=== PATIENT | male | born 1950 | race Caucasian/White ===

== ENCOUNTER → 2018-03-02 17:31 | Outpatient (CLI) | payer MEDICARE ==
[~2018-03-02 17:31] MED LIST: ALBUTEROL SULF8.5 GM INH; BAYER CHEWABLE81 MG PO; CYCLOBENZAPRINE10 MG PO; ERYTHROMYCIN OPT1 GM EACH EYE; LOSARTAN/HCT TAB 100; MELOXICAM TAB 15M
[2018-03-04 09:13] LABS: IMMUNOGLOBULIN A 343 mg/dL (61-437)
[2018-03-06 17:10] LABS: IGG SUBCLASS 1 412 mg/dL (248-810); IGG SUBCLASS 2 305 mg/dL (130-555); IGG SUBCLASS 3 62 mg/dL (15-102); IGG SUBCLASS 4 26 mg/dL (2-96); IMMUNOGLOBULIN G 736 mg/dL (700-1600)
[2018-03-07 09:16] LABS: IMMUNOGLOBULIN E 56 IU/mL (0-100)
== END | disposition home or self-care (01) ==
LOC: D.LABREF 17:31
PROVIDERS: Internal Medicine Pulmonary Disease
DX: J47.9 Bronchiectasis, uncomplicated (principal); R06.02 Shortness of breath

== ENCOUNTER → 2018-03-09 07:34 | Day surgery (SDC) | payer MEDICARE, OTHER ==
--- NOTE | ~2018-03-09 | OP ---
PATIENT NAME: ANDRES PURCELL MEDICAL RECORD: [id number] :46 LOCATION:[facility] ADMISSION DATE: SURGEON: CRISTIN CONNELL MD DATE OF OPERATION: 03/09/2018 PROCEDURE: Fiberoptic bronchoscopy. INDICATION: Mr. Purcell is a 67-year-old gentleman who recently had a CT scan of the chest, which showed atelectasis of right lower lobe and bronchiectasis. Fiberoptic bronchoscopy was carried out to inspect the airway for any obstructive lesion as well as any foreign body. MONITORING: EKG, pulse, blood pressure, CO2 was monitored throughout the procedure. MEDICATIONS: Versed 4 mg IV in divided doses, atropine 0.6 mg IM, morphine 4 mg IM, Phenergan 12.5 mg IM, fentanyl 100 mcg IV in divided doses. PROCEDURE IN DETAIL: The fiberoptic bronchoscope was easily passed through the mouth. 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 The main trachea was normal. The shreya was sharp. The right main bronchus was normal. The subsegment to the right upper lobe within normal range. No endobronchial lesion was seen. The right middle lobe subsegment within normal range. The right lower lobe subsegment within normal range. No endobronchial lesion was seen. No foreign body was seen. The left main bronchus was normal. The subsegment to the left upper lobe lingula, left lower lobe within normal range. No endobronchial lesion was seen. Washing was obtained and sent for routine culture and sensitivity, AFB, and fungus. Overall, the patient tolerated the procedure very well. TRANSINT:[id number] Voice Confirmation ID: [id number] DOCUMENT ID: [id number] CRISTIN CONNELL MD CC: [id number] DICTATION DATE: 03/09/18 1057 SOAKERS SUPERVISOR: 03/09/18 1151 [facility] [address] [place] [address]
[2018-03-09 08:16] LABS: BASOPHILS 0.2 % (0-2); EOSINOPHILS 1.4 % (0-7); HEMATOCRIT 43.9 % (42.0-54.0); HEMOGLOBIN 15.9 g/dL (13.5-17.5); IMMATURE GRANULOCYTES 0.2 % (0-5); LYMPHOCYTES 23.4 % (15-50); MCH 34.6 pg (26.0-34.0); MCHC 36.2 g/dL (31.0-37.0); MCV 95.4 fL (80.0-100.0); MEAN PLATELET VOLUME 9.5 fL (7.4-10.4); MONOCYTES 6.9 % (2-11); NEUTROPHILS 67.9 % (40-80); PLATELET COUNT 196 10x3/uL (130-400); RDW 13.2 % (11.5-14.5); WBC 4.9 10x3/uL (4.8-10.8)
[2018-03-09 08:32] LABS: INR 0.99 (0.85-1.17); PROTIME 12.6 SECONDS (11.6-15.0)
--- NOTE | 2018-03-09 14:18 | NUR ---
PATIENT RECIEVED FROM ENDO POST BRONCOSCOPY. PATIENT HAD NO SOB OR COUGH POST PROECEDURE AND TOLORATED FULL LIQUIDS. PATIENT EDUCATION PROVIDED AND UNDERSTANDING VERBALIZED.
[2018-03-10 13:16] LABS: FUNGUS STAIN Final report (())
[2018-03-10 17:11] LABS: ACID FAST SMEAR Negative (()); AFB SPECIMEN PROCESSING Concentration (())
[2018-03-17 15:17] LABS: FUNGUS MYCOLOGY CULTURE Preliminary report (())
== END | disposition home or self-care (01) ==
LOC: D.OPS 07:34
PROVIDERS: Internal Medicine Pulmonary Disease
DX: J47.9 Bronchiectasis, uncomplicated (principal); J98.11 Atelectasis

== ENCOUNTER → 2018-04-18 09:33 | Outpatient (CLI) | payer MEDICARE, OTHER ==
[2018-04-18 13:10] LABS: ALBUMIN 3.9 g/dL (3.4-5.0); BILIRUBIN - DIRECT 0.15 mg/dL (0.00-0.30); BILIRUBIN - INDIRECT 0.4 mg/dL (0.00-1.00); BILIRUBIN - TOTAL 0.55 mg/dL (0.2-1.3); PROTEIN - SERUM 6.9 g/dL (6.4-8.2)
[2018-04-19 08:20] LABS: IMMUNOGLOBULIN A 325 mg/dL (61-437); IMMUNOGLOBULIN M 78 mg/dL (20-172)
[2018-04-19 15:20] LABS: ANA REFLEX - DIRECT Negative (Negative)
[2018-04-20 06:16] LABS: IGG SUBCLASS 1 397 mg/dL (248-810); IGG SUBCLASS 2 291 mg/dL (130-555); IGG SUBCLASS 3 65 mg/dL (15-102); IGG SUBCLASS 4 30 mg/dL (2-96); IMMUNOGLOBULIN G 758 mg/dL (700-1600)
--- NOTE | 2018-04-20 11:54 | EC ---
PATIENT:ANDRES PURCELL DATE OF SERVICE: 04/18/18 SEX: M MEDICAL RECORD: [id number] DATE OF : 46 LOCATION:[facility] AGE OF PATIENT: 67 ADMISSION DATE: 04/18/18 REFERRING PHYSICIAN: INTERPRETING PHYSICIAN: ИВАН HAMLIN MD ECHOCARDIOGRAM REPORT ECHO CHARGES 4 ECHO COMPLETE Date: 04/18/18 CLINICAL DIAGNOSIS: DYSPENA ECHOCARDIOGRAPHIC MEASUREMENTS (adult normal given) AC root (d.<3.7cm) 3.1 cm LV Septum d (<1.2 cm> 1.3 cm Valve Excursion 1.9 cm LV Septum (systole) 1.8 cm Left Atria (s.<4.0cm> 3.9 cm LVPW d(<1.2cm) 1.1 cm RV (d.<2.3cm) 3.1 cm LVPW (sytole) 1.8 cm LV diastole(<5.6CM) 4.4 cm MV E-F(>70mm/sec) cm LV systole 2.2 cm LVOT Diameter 1.7 cm MV exc.(>10mm) cm Est.ejection fraction (50-75%) % DOPPLER: LVIT cm/sec A 67 cm/sec E 100 cm/sec LA cm/sec RVSP 27.8 mmHg LVOT 108 cm/sec AOP1/2T m/s Asc. Ao 115 cm/sec RVOT 70 cm/sec RA cm/sec PA 86 cm/sec AV Gradient Peak 5.3 mmHg AV Mean 2.5 mmHg AV Area 1.4 cm MV Gradient Peak 3.8 mmHg MV Mean 1.4 mmHg MV Area cm COMMENTS: Associate Professor Of Education: Princess GANDHIYOANA CLARKE Sprinkler Driver: Soham Hamlin TAPE# PACS Pericardial Effusion N DATE OF SERVICE: 04/18/2018 FINDINGS: 1. Left ventricular chamber size is within normal limits. Left ventricular systolic function is normal. Overall ejection fraction estimated at 65%. 2. Left atrium is within normal limits. Right atrium and right ventricular chamber sizes are mildly dilated. 3. Valvular structure have normal structure and motion. 4. Doppler interrogation reveals mild aortic insufficiency, mild mitral regurgitation, mild tricuspid regurgitation, no other valvular insufficiency or ECHOCARDIOGRAM REPORT [id number] ANDRES PURCELL stenosis. Pulmonary systolic pressure is normal, estimated at 28 mmHg. 5. No evidence of pericardial effusion or left ventricular thrombus. TRANSINT:[id number] Voice Confirmation ID: [id number] DOCUMENT ID: [id number] ИВАН HAMLIN MD at 1154 CC: [id number] DICTATION DATE: 04/19/18 1129 FIELD MARKETING MANAGER: 04/19/18 1141 DEP CLI 04/18/18 [id number] [place] [address]
[2018-04-22 07:26] LABS: IMMUNOGLOBULIN E 49 IU/mL (6-495)
== END | disposition home or self-care (01) ==
LOC: D.ECHO 09:33 → D.RT 13:00
PROVIDERS: ATTEND Internal Medicine Pulmonary Disease
DX: J47.9 Bronchiectasis, uncomplicated (principal); R06.00 Dyspnea, unspecified

== ENCOUNTER 2018-05-10 08:20 | Outpatient (CLI) | payer MEDICARE, OTHER ==
[~2018-05-10] VITALS: Ht 177.8 cm; Wt 93.2 kg
--- NOTE | ~2018-05-10 | HEMODYNAMI ---
PATIENT:ANDRES PURCELL MEDICAL RECORD: [id number] : 46 LOCATION:[facility] ADMISSION DATE: 05/10/18 Generatedon:05/10/201810:05 Patient name: ANDRES PURCELL Patient #: [id number] SSN: : 1950 Date of study: 05/10/2018 Page: Of Hemodynamic Procedure Report Patient Data Patient Demographics Procedure consent was obtained First Name: ANDRES Gender: Male Last Name: JAZZY : 1950 Middle Initial: L Age: 67 year(s) Patient #: [id number] Race: Additional ID: [id number] Contact details [address]: [address] [place] [address] State: [facility] Zip code: [address] Admission Admission Data Admission Date: 05/10/2018 Admission Time: 8:20 Arrival Date: 05/10/2018 Arrival Time: 0:00 Admit Source: Other Insurance Payor: Medicare Height (in.): 70 BSA: 2.11 (m2) Height (cm.): 177.8 BMI: 29.41 (kg/m2) Weight (lbs.): 205 Weight (kg.): 92.99 Lab Results Lab Result Date: 05/10/2018 Lab Result Time: 0:00 Biochemistry Name Units Result Min Max BUN mg/dl 17 --(---*)-- 7 18 Creatinine mg/dl 0.8 --(-*--)-- 0.6 1.3 CBC Name Units Result Min Max Hemoglobin g/dl 15.9 --(--*-)-- 13.5 17.5 Procedure Procedure Types Cath Procedure Diagnostic Procedure [facility] w/Coronaries Procedure Description Procedure Date Procedure Date: 05/10/2018 Procedure Start Time: 9:57 Procedure End Time: 10:02 Procedure Staff Name Function Darin Hamlin MD Performing Physician Giulia Walton RT Monitor Zachery Monroy RN Nurse Denisse Romo RT Scrub Procedure Data Cath Procedure Fluoroscopy Diagnostic fluoroscopy Total fluoroscopy Time: 0.7 time: 0.7 min min Diagnostic fluoroscopy Total fluoroscopy dose: 354 dose: 354 mGy mGy Contrast Material Contrast Material Type Amount (ml) Isovue 300 56 Entry Location Entry Primary Successful Side Size Upsize Upsize Entry Closure Succes sful Closure Location (Fr) 1 (Fr) 2 (Fr) Remarks Device Remarks Femoral Right 5 Fr Exoseal artery Estimated blood loss: 5 ml Diagnostic catheters Device Type Used For End Catheter Placement MULTIPACK Pigtail 5 Fr LV Angiography catheter MULTIPACK JL 4.0 5Fr Left Coronary catheter Angiography MULTIPACK 3DRC 5Fr Right Coronary catheter Angiography Procedure Complications No complications Procedure Medications Medication Administration Route Dosage 0.9% NaCl I.V. 100 ml/hr Oxygen etCO2 Nasal cannula 2 l/min Heparin Flush Bag added to field 2 bags (1000units/500ml NS) Lidocaine 2% added to field 20 Versed I.V. 2 mg Fentanyl I.V. 100 mcg Hemodynamics Rest BSA: 2.11 (m2) HGB: 15.9 (g/dl) O2 Consumption: Estimated: 231.04 (ml/min) O2 Co nsumption indexed: Estimated:109.5 (ml/min/m) Heart Rate: 53 (bpm) Pressure Samples Time Site Value (mmHg) Purpose Heart Use Rate(bpm) 9:58 LV 129/-16,-33 Snapshot 65 Snapshots Pre Cath Intra NCS Post Cath Vital Signs Time Heart Resp SPO2 etCO2 NIBP (mmHg) Rhythm Pain Sedation Rate (ipm) (%) (mmHg) Status Level (bpm) 9:33:11 53 16 94 0 142/83(109) NSR 0 (11) 10(A) , No pain 9:37:26 54 19 95 31.1 121/82(111) NSR 0 (11) 10(A) , No pain 9:41:34 54 14 94 30.4 126/82(108) NSR 0 (11) 10(A) , No pain 9:45:44 53 12 95 33.4 125/81(105) NSR 0 (11) 10(A) , No pain 9:49:52 62 12 94 31.1 120/85(102) NSR 0 (11) 10(A) , No pain 9:54:02 56 13 96 33.4 131/74(102) NSR 0 (11) 10(A) , No pain 9:58:14 66 12 94 31.1 119/80(99) NSR 0 (11) 9(A) , No pain 10:02:20 69 15 94 2.2 124/83(99) NSR 0 (11) 9(A) , No pain Medications Time Medication Route Dose Verified Delivered Reason Notes Effe ctiveness by by 9:35:51 0.9% NaCl I.V. 100 Zachery Zachery Per ml/hr Eliana Monroy physician RN RN 9:36:03 Oxygen etCO2 2 Zachery Zachery for low 02 Nasal l/min Lorigan Lorigan sats cannula RN RN 9:36:13 Heparin Flush added 2 Zachery Zachery used for Bag to bags Lorigan Lorigan procedure (1000units/500ml field RN RN NS) 9:36:22 Lidocaine 2% added 20ml Zachery Zachery for local to vial Lorigan Lorigan anesthetic field RN RN 9:53:47 Versed I.V. 2 mg Zachery Zachery for Lorigan Lorigan sedation RN RN 9:53:56 Fentanyl I.V. 100 Zachery Zachery for mcg Lorigan Lorigan sedation RN billet cutter Log Time Note 9:15:49 Zachery Monroy RN sent for patient. Start room use. 9:24:56 Time tracking: Regular hours (M-F 7:00 - 5:00) 9:25:00 Plan of Care:Hemodynamics will remain stable., Cardiac rhythm will remain stable., Comfort level will be maintained., Respiratory function will remain adequate., Patient/ family verbilizes understanding of procedure., Procedure tolerated without complication., Recovers from procedure without complications.. 9:25:05 Patient received from Pre/Post Procedure Room to CCL 2 Alert and oriented. Tansferred to table in Supine position. 9:25:06 Warm blankets applied, and bee hugger turned on for patient comfort. 9:25:06 Correct patient and procedure confirmed by team. 9:25:07 Signed procedure consent form obtained from patient. 9:25:08 ECG and BP/O2 sat monitors applied to patient. 9:25:09 Full Disclosure recording started 9:32:08 Vital chart was started 9:33:08 Baseline sample Acquired. 9:33:12 Rhythm: sinus rhythm 9:33:21 H&P Date Dictated: 05/10/2018 Within 30 days and on chart., H&P Addendum completed by physician on day of procedure. (MUST COMPLETE FOR ALL OUTPATIENTS). 9:33:22 Pre-procedure instructions explained to patient. 9:33:23 Pre-op teaching completed and patient verbalized understanding. 9:33:24 Family in waiting room. 9:33:26 Patient NPO since Midnight. 9:33:33 Is the patient allergic to Iodine/contrast media? Yes. 9:33:34 Was the patient premedicated? Yes 9:33:37 Is patient on blood thinner?No 9:33:38 Patient diabetic? No. 9:34:02 Previous problem with sedation/anesthesia? No ? 9:34:03 Snore? Yes 9:34:04 Sleep apnea? Yes 9:34:06 Deviated septum? No 9:34:07 Opens mouth fully? Yes 9:34:07 Sticks out tongue? Yes 9:34:17 Dentures? Yes in tight 9:34:23 Pre procedure: right dorsailis pedis pulse 1+ Palpable, but thready & weak; easily obliterated 9:34:25 Pre procedure: left dorsailis pedis pulse 1+ Palpable, but thready & weak; easily obliterated 9:34:27 Patient pain scale 0/10 ?. 9:34:33 IV patent on arrival in left forearm with 0.9% NaCl at [facility]. 9:34:35 Lab results completed and on chart. 9:34:38 Right groin area was prepped with chlora-prep and draped in sterile fashion 9:34:38 Alarms reviewed by R. N. 9:34:39 Sharps counted by scrub and verified by R.N. 9:35:51 0.9% NaCl 100 ml/hr I.V. was administered by Zachery Monroy RN; Per physician; 9:36:03 Oxygen 2 l/min etCO2 Nasal cannula was administered by Zachery Monroy RN; for low 02 sats; 9:36:13 Heparin Flush Bag (1000units/500ml NS) 2 bags added to field was administered by Zachery Monroy RN; used for procedure; 9:36:22 Lidocaine 2% 20ml vial added to field was administered by Zachery Monroy RN; for local anesthetic; 9:38:35 Lab Result : BUN 17 mg/dl 9:38:35 Lab Result : Hemoglobin 15.9 g/dl 9:38:35 Lab Result : Creatinine 0.8 mg/dl 9:39:56 Admit Source: Other 9:39:59 Arrival Date: 05/10/2018 12:00:00 AM 9:40:05 Insurance Payor : Medicare 9:40:12 Patient Height : 70 inches 9:40:17 Patient Weight : 205 lbs 9:43:43 Zero performed for pressure channel P1 9:52:32 Physician arrived 9:52:33 --------ALL STOP TIME OUT------ 9:52:33 Final Timeout: patient, procedure, and site verified with staff and physician. All members of the team are in agreement. 9:52:39 Right groin site verified by team. 9:52:43 Maximum allowable Isovue 300 dose 300ml. Physician notified. (300ml for normal creatinines. For patients with creatinine of 1.7 or higher multiply weight(kg) x 5 divided by creatinine.) 9:52:48 Fire Safety Assessment: A--An alcohol-based skin anteseptic being used preoperatively., C--Open oxygen or nitrous oxide is being used., D--An ESU, laser, or fiber-optic light is being used. 9:52:51 Physical assessment completed. ASA score P 2 - A patient with mild systemic disease as per Darin Hamlin MD. 9:52:55 Sedation plan: IV Moderate Sedation Medication:Versed, Fentanyl 9:53:47 Versed 2 mg I.V. was administered by Zachery Monroy RN; for sedation; 9:53:56 Fentanyl 100 mcg I.V. was administered by Zachery Monroy RN; for sedation; 9:55:20 Use device set Femoral Dx 9:55:21 ACIST Syringe (62961) opened to sterile field. 9:55:22 Bag Decanter (2002) opened to sterile field. 9:55:22 Medline Cath Pack ([id number]) opened to sterile field. 9:55:23 DIAGNOSTIC WIRE .035 260cm J wire (336503) opened to sterile field. 9:55:24 ACIST Hand Control (04633) opened to sterile field. 9:55:25 ACIST Manifold (49310) opened to sterile field. 9:55:25 DIAGNOSTIC Multipack 5Fr catheter set (LA4865) opened to sterile field. 9:55:27 Tegaderm 4 x 4 (1626W) opened to sterile field. 9:55:28 SHEATH 5FR [place] (VGA322) opened to sterile field. 9:57:25 Procedure started. 9:57:34 Local anesthetic to right femoral artery with Lidocaine 2% by Darin Hamlin MD.INITIAL ACCESS ONLY 9:57:44 A 5 Fr sheath was inserted into the Right Femoral artery 9:58:12 A MULTIPACK Pigtail 5 Fr catheter was advanced over the wire and used for LV Angiography. 9:58:30 LV hemodynamics recorded. 9:58:31 LV gram done using MARROQUIN 9:58:37 Injector settings: Ml/sec: 5, Volume: 15, 9:58:42 EF : 60 % 9:58:51 Catheter removed. 9:59:05 A MULTIPACK JL 4.0 5Fr catheter was advanced over the wire and used for Left Coronary Angiography. 9:59:25 LCA angiography performed. 9:59:29 Injector settings: Ml/sec: 3, Volume: 6, 10:00:11 Catheter removed. 10:00:17 A MULTIPACK 3DRC 5Fr catheter was advanced over the wire and used for Right Coronary Angiography. 10:00:49 RCA angiography performed. 10:00:53 Injector settings: Ml/sec: 3, Volume: 6, 10:00:59 EXOSEAL 5Fr (EX500) opened to sterile field. 10:01:06 Catheter removed. 10:01:13 Sheath removed intact; hemostasis achieved with Exoseal to the Right Femoral artery. 10:01:15 Procedure ended.(Physican Out) 10:01:51 Fluoroscopy time 00.70 minutes. 10:01:55 Fluoroscopy dose: 354 mGy 10:01:55 Flurop Dose total: 354 10:02:12 Contrast amount:Isovue 300 56ml. 10:02:14 Sharps counted by scrub and verified by R.N. 10:02:24 Insertion/operative site no bleeding no hematoma. 10:02:27 Post-op/insertion site Right Femoral artery dressed using a 4 x 4 and Tegaderm. 10:02:28 Post Procedure Pulses reassessed and unchanged 10:02:31 Post procedure rhythm: unchanged. 10:02:34 Estimated blood loss: 5 ml 10:02:35 Post procedure instruction explained to patient.Patient verbalizes understanding. 10:02:35 Patient needs reinforcement of post procedure teaching. 10:02:41 Procedure and supply charges have been captured, reviewed, submitted and are correct. 10:02:45 Procedure Complication : No complications 10:02:48 Vital chart was stopped 10:02:48 See physician's report for complete and final results. 10:02:51 Report given to Pre/Post Procedure Room. 10:02:54 Patient transfered to Pre/Post Procedure Room with Stretcher. 10:02:56 Procedure ended. 10:02:56 Full Disclosure recording stopped 10:03:00 End room use (Document Last) Device Usage Item Name Manufacture Quantity Catalog Hospital Part Current Minimal L ot# / Number Charge Number Stock Stock Serial# Code ACIST Acist 1 23246 700256 454875 963633 20 Syringe Medical (99967) Systems Inc Bag Microtek 1 2001S 155023 35089 950191 5 Decanter Medical Inc. () Medline Medline 1 [id number] 316123 12271 879367 5 Cath Pack ([id number]) DIAGNOSTIC St Tom 1 414435 138664 527200 817586 30 WIRE .035 260cm J wire (622035) ACIST Hand Acist 1 55466 235223 750115 121057 5 Control Medical (66266) Systems Inc ACIST Acist 1 92660 693729 540745 761205 5 Manifold Medical (02871) Systems Inc DIAGNOSTIC Cardinal 1 JT8431 235621 72844 183197 30 Multipack Health 5Fr catheter set (CB7013) Tegaderm 4 3M 1 1626W 990618 218581 329204 5 x 4 (1626W) SHEATH 5FR Terumo 1 IIP335 492075 457841 123687 5 [place] (SLQ421) MULTIPACK Cardinal 1 014195 5 Pigtail 5 Health Fr catheter MULTIPACK Cardinal 1 051780 5 JL 4.0 5Fr Health catheter MULTIPACK Cardinal 1 713859 5 3DRC 5Fr Health catheter EXOSEAL 5Fr Cardinal 1 EX500 497662 342571 389456 10 (EX500) Health Signature Audit Adel Stage Time Signature Unsigned Intra-Procedure 05/10/2018 Giulia Walton 10:05:13 AM RT(R) Signatures Monitor : Giulia Walton RT Signature : Date : Time : [facility] [address] [place] [address]
[2018-05-10] MEDS ORDERED: MOBIC7.5 MG PO (08:48)
[2018-05-10] MEDS ORDERED: COZAAR100 MG PO (08:48)
[2018-05-10] MEDS ORDERED: HYDROCHLOROTH12.5 M1 PO (08:48)
[2018-05-10] MEDS ORDERED: CLARITIN 10 MG10 MG PO (08:49)
[2018-05-10] MEDS ORDERED: CO Q-10200 MG PO (08:49)
[2018-05-10] MEDS ORDERED: LIPITOR20 MG PO (08:49)
[2018-05-10] MEDS ORDERED: PHAZYME180 MG PO (08:50)
[2018-05-10] MEDS ORDERED: FAMOTIDINE10 MG PO (08:50)
[2018-05-10] MEDS ORDERED: POTASSIUM99 M1 PO (08:51)
[2018-05-10] MEDS ORDERED: MULTI-DAY VITAM1 TAB PO (08:51)
[2018-05-10] MEDS ORDERED: OSTEO BI-FLEX1 EAC1 PO (08:51)
[2018-05-10] MEDS ORDERED: PREDNISONE20 MG PO (08:52)
[2018-05-10 09:00] VITALS: BP 144/86; Ht 177.8 cm; Wt 93.2 kg
[2018-05-10 09:17] LABS: BASOPHILS 0 % (0-2); EOSINOPHILS 0 % (0-7); HEMATOCRIT 43.5 % (42.0-54.0); HEMOGLOBIN 15.9 g/dL (13.5-17.5); IMMATURE GRANULOCYTES 0.1 % (0-5); LYMPHOCYTES 10.4 % (15-50); MCH 34.6 pg (26.0-34.0); MCHC 36.6 g/dL (31.0-37.0); MCV 94.8 fL (80.0-100.0); MEAN PLATELET VOLUME 9.8 fL (7.4-10.4); MONOCYTES 1.3 % (2-11); NEUTROPHILS 88.2 % (40-80); PLATELET COUNT 255 10x3/uL (130-400); RBC 4.59 10x6/uL (4.20-6.10); RDW 12.9 % (11.5-14.5); WBC 8.2 10x3/uL (4.8-10.8)
[2018-05-10 09:30] LABS: CALC OSMOLALITY 282 mosm/kg (275-300); CALCIUM 9.3 mg/dL (8.5-10.1); CARBON DIOXIDE 27.5 mmol/L (21.0-32.0); CHLORIDE - SERUM 103 mmol/L (98-107); CREATININE - SERUM 0.8 mg/dL (0.6-1.3); GLUCOSE 128 mg/dL (74-106); POTASSIUM - SERUM 3.8 mmol/L (3.5-5.1); SODIUM 140 mmol/L (136-145); UREA NITROGEN 17 mg/dL (7-18); eGFR NON AFRICAN AMERICAN > 90 mL/min (90-120)
--- NOTE | 2018-05-10 10:19 | NUR ---
RECIEVED TO ROOM VIA STRETCHER FROM ENGINEERING LECTURER WITH 5 FR EXOSEAL R/GROIN CDI NO BLEEDING OR HEMATOMA. PATIENT CONNECTED TO MONITOR FOR OBSERVATION WITH HR 63 BP 118/79 CHEST PAIN IS DENIED
--- NOTE | 2018-05-10 10:26 | NUR ---
CHEST PAIN IS DENIED WITH VSS. 5 FR EXOSEAL R/GROIN IS CDI WITH NO BLEEDING NOTED
--- NOTE | 2018-05-10 10:44 | NUR ---
PATIENT CONTINUES TO REST WITH NO DISTRESS VSS 5 FR EXOSEAL R/GROIN IS CDI.
--- NOTE | 2018-05-10 11:15 | NUR ---
5 FR EXOSEAL R/GROIN IS CDI WITH NO DISTRESS PATIENT DENIED PAIN OR NEEDS
--- NOTE | 2018-05-10 11:54 | NUR ---
5 FR EXOSEAL R/GROIN IS CDI WITH PATIENT ALERT AND ORIENTED. REPOSITIONED TO SITTING WITH HOB UP 30 FOR COMFORT.PATIENT TOLERATING SANDWICH WITH NAUSEA DENIED
--- NOTE | 2018-05-10 12:05 | NUR ---
PIV REMOVED WITH DRESSING APPLIED. 5 FR EXOSEAL R/GROIN IS CDI PATINENT UP TO GET DRESSED FOR DISCHARGE HOME
--- NOTE | 2018-05-10 12:16 | NUR ---
VERBAL AND WRITTEN DISCHARGE GONE OVER WITH PATIENT AND . 5 FR EXOSEAL R/GROIN IS CDI WITH CHEST PAIN DENIED, PATIENT LEFT VIA WC TO PARKING FOR TRANSPORT HOME
--- NOTE | 2018-05-12 15:03 | OP ---
PATIENT NAME: ANDRES PURCELL MEDICAL RECORD: [id number] :46 LOCATION:[facility] ADMISSION DATE: SURGEON: ИВАН WRIGHT MD DATE OF OPERATION: 05/10/2018 PROCEDURES: 1. Left heart catheterization. 2. Selective coronary angiography. 3. Left ventriculogram. INDICATION: Chest pain compatible with angina. PROCEDURE IN DETAIL: After informed consent was obtained and after a detailed description of the risks, benefits as well as alternative therapies, the patient elected to proceed with angiogram and heart catheterization. The right femoral area was prepped and draped in normal sterile fashion. Right femoral artery was cannulated via modified Seldinger technique with placement of 5-Iranian sheath. All catheters exchanged through this sheath. FINDINGS: Left ventriculogram was performed in standard 30-degree MARROQUIN view, reveals good cardiac wall motion throughout all segments. Overall ejection fraction estimated 60%. SELECTIVE CORONARY ANGIOGRAPHY: Left main, left anterior descending, left circumflex, right coronary artery are all smooth-walled vessels with no angiographic evidence of coronary artery disease. OVERALL IMPRESSION: 1. No angiographic evidence of coronary artery disease. 2. Normal left heart pressures. 3. Normal left ventricular systolic function. Chest pain is noncardiac in etiology. No further cardiac workup needs to be ascertained. TRANSINT:[id number] Voice Confirmation ID: [id number] DOCUMENT ID: [id number] ИВАН WRIGHT MD at 1503 CC: [id number] DICTATION DATE: 05/10/18 1004 CLINICAL NURSING DIRECTOR: 05/10/18 1301 DEP CLI 05/10/18 [id number] [place] [address]
== END 2018-05-10 12:18 | disposition home or self-care (01) ==
LOC: D.CATH 08:20
PROVIDERS: ATTEND Internal Medicine Interventional Cardiology
DX: R07.89 Other chest pain (principal); Z01.812 Encounter for preprocedural laboratory examination